=== PATIENT | female | born 2000 | race Caucasian/White ===

== ENCOUNTER 2023-03-24 10:28 | Emergency (ER) | payer OTHER, SELFPAY ==
[2023-03-24 10:36] VITALS: BP 102/78
--- NOTE | 2023-03-24 10:43 | ED.GENMED ---
History of Present Illness
<Melissa Bass PA-C - Last Filed: 03/24/23 14:43>
General
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
Source: patient
Exam Limitations: none
Time Seen by Provider: 03/24/23 10:42
Nursing documentation reviewed up to this point in time: agreed with
Travel History
Have you had any contact with someone who has COVID-19?: No
Do you have any symptoms of coronavirus? Fever > 100 degrees, chills, cough, shortness of breath, sore throat, loss of taste or smell, muscle aches, or headache?: No
History of Present Illness
History of Present Illness:
This is a 22-year-old female with no pertinent past medical history of anxiety, PCOS who is presenting to the emergency department today with acute on chronic abdominal pain, diarrhea, and urinary urgency. She states that she has had abdominal pain
for around 6 months but states that it is becoming worse within the last week. It is located on the left side and is intermittent. When the pain comes on, it lasts around an hour or 2 and eventually subsides towards the end of the day. She states
that she also has associated nausea but no vomiting. She does not have a decreased appetite. She denies fevers or chills, chest pain, shortness of breath, dizziness, lightheadedness. She denies vaginal bleeding. She said that she has had 3
episodes of diarrhea that started 3 days ago. She saw her [facility] at [facility] for her abdominal pain 6 months ago, at which time she got ultrasound and was diagnosed with PCOS. Her last menstrual period was January 30, she states that
she has a history of irregular periods and had to take progesterone at one point to induce a period. She states that she was being treated for a yeast infection last week with 2 doses of Diflucan and states that she still has some residual white
discharge. She currently does not take progesterone. She states that she has not had sexual intercourse recently and states that there is no chance of STI/STD. She states her family doctor ordered blood work recently but she has not gotten it
done.
Past History
<Melissa Bass PA-C - Last Filed: 03/24/23 14:43>
Past History
ED Past Medical History: None
ED Past Surgical History: None
Social History
Tobacco: Non-smoker
Alcohol: Occasional (rare)
Drug: None
Personal: Single
Living: with family
Employment: Student
Family History
Family History: Other (Noncontributory)
Review of Systems
<Melissa Bass PA-C - Last Filed: 03/24/23 14:43>
Review of Systems
All Other Systems: ROS reviewed and negative except as documented in HPI and ROS
Phy Exam
<Melissa Bass PA-C - Last Filed: 03/24/23 14:43>
Physical Exam
Physical Exam:
General: patient is well appearing and in no acute distress
Skin: warm and dry, no rashes or lesions
Cardiac: regular rate
Pulm: normal respiratory effort
Abdomen: abdomen is nondistended nontender, normoactive bowel sounds.
Neuro: alert and oriented x3
Course
<DAPHNE Stover Last Filed: 03/24/23 14:43>
Orders/Labs/Results
Orders:
Orders
03/24/23 10:45
HCG, Urine Qualitative Screen Urgent
Date Specimen was Collected: 03/24/23
Time Specimen was Collected: 10:39
Comment: ADD ON
Urinalysis Reflex To Culture Urgent
Date Specimen was Collected: 03/24/23
Time Specimen was Collected: 10:39
Urine Microscopic Reflex Cult Urgent
Chlamydia/GC by PCR Urgent
LIBIA Source: U
Specimen Description:
Source:: URINE
Date Specimen was Collected: 03/24/23
Time Specimen was Collected: 10:39
Comment: Add on by Melissa Bass
03/24/23 10:49
Add On- LAB Urgent
Tests Added?: urine preg
03/24/23 11:04
Pelvis & Transvaginal US [US Pelvis W Transvag Combined] Urgent
Comment:
Reason For Exam: left sided pelvic pain
03/24/23 11:18
Complete Blood Count/With Diff Urgent
Comprehensive Metabolic Panel Urgent
03/24/23 11:21
Add On- LAB Urgent
Tests Added?: urine GC/chlamydia
Abnormal Lab Results
03/24/23 03/24/23
10:45 11:18
RBC 3.96 L 10^6/uL
(4.20-5.40)
Hct 35.2 L %
(37.0-47.0)
MCH 31.1 H pg
(27.0-31.0)
Leukocyte Esterase Rfl Trace A
(Negative)
Urine RBC 3-6 A /HPF
(0-2)
Urine Bacteria (Reflex) Few A
(Negative)
03/24/23 11:18
03/24/23 11:18
Vital Signs
Initial and Last Documented VS:
Initial Vital Signs
Temp Pulse Resp BP Pulse Ox
98.3 F 75 16 102/78 98
03/24/23 10:36 03/24/23 10:36 03/24/23 10:36 03/24/23 10:36 03/24/23 10:36
Last Documented Vital Signs
Temp Pulse Resp BP Pulse Ox
98.3 F 60 16 96/65 98
03/24/23 10:36 03/24/23 13:51 03/24/23 10:36 03/24/23 13:51 03/24/23 10:36
<Luis Miguel Lainez DO - Last Filed: 03/24/23 12:23>
Orders/Labs/Results
Orders:
Orders
03/24/23 10:45
HCG, Urine Qualitative Screen Urgent
Date Specimen was Collected: 03/24/23
Time Specimen was Collected: 10:39
Comment: ADD ON
Urinalysis Reflex To Culture Urgent
Date Specimen was Collected: 03/24/23
Time Specimen was Collected: 10:39
Urine Microscopic Reflex Cult Urgent
Chlamydia/GC by PCR Urgent
LIBIA Source: U
Specimen Description:
Source:: URINE
Date Specimen was Collected: 03/24/23
Time Specimen was Collected: 10:39
Comment: Add on by Melissa Bass
03/24/23 10:49
Add On- LAB Urgent
Tests Added?: urine preg
03/24/23 11:04
Pelvis & Transvaginal US [US Pelvis W Transvag Combined] Urgent
Comment:
Reason For Exam: left sided pelvic pain
03/24/23 11:18
Complete Blood Count/With Diff Urgent
Comprehensive Metabolic Panel Urgent
03/24/23 11:21
Add On- LAB Urgent
Tests Added?: urine GC/chlamydia
Abnormal Lab Results
03/24/23 03/24/23
10:45 11:18
RBC 3.96 L 10^6/uL
(4.20-5.40)
Hct 35.2 L %
(37.0-47.0)
MCH 31.1 H pg
(27.0-31.0)
Leukocyte Esterase Rfl Trace A
(Negative)
Urine RBC 3-6 A /HPF
(0-2)
Urine Bacteria (Reflex) Few A
(Negative)
03/24/23 11:18
03/24/23 11:18
Vital Signs
Initial and Last Documented VS:
Initial Vital Signs
Temp Pulse Resp BP Pulse Ox
98.3 F 75 16 102/78 98
03/24/23 10:36 03/24/23 10:36 03/24/23 10:36 03/24/23 10:36 03/24/23 10:36
Last Documented Vital Signs
Temp Pulse Resp BP Pulse Ox
98.3 F 60 16 96/65 98
03/24/23 10:36 03/24/23 13:51 03/24/23 10:36 03/24/23 13:51 03/24/23 10:36
<Melissa Bass PA-C - Last Filed: 03/24/23 14:43>
MDM/Problems Addressed
Differential Diagnosis Includes:
urinary tract infection, pyelonephritis, ovarian cyst, ovarian torsion, tubo-ovarian abscess, gastroenteritis, endometriosis, interstitial cystitis
MDM/Problems Addressed:
dysuria
diarrhea
Chronic conditions affecting care:
anxiety
PCOS
<Melissa Bass PA-C - Last Filed: 03/24/23 14:43>
*Pulse Oximetry
Patient hypoxic: no
*Critical Care Note
Total Time (30-74mins, 75-104mins- exclusive of procedures): Not Applicable
Data Reviewed
Review of Other/Old Records Reveals: Records (reviewed ER physician documentation for previous visit for chlamydia)
<Melissa Bass PA-C - Last Filed: 03/24/23 14:43>
Patient Management
Escalation/DeEscalation of care consider admission/obs:
This is a 22-year-old female presenting emergency department today with acute on chronic left sided pelvic pain that has worsened within the past week, as well as diarrhea and urinary urgency. She is well-appearing and her vital signs are stable.
Her urinalysis does not show any evidence of urinary tract infection. Her CBC and CMP are within normal limits. Her pelvic and transvaginal ultrasound does not show any suspicious ovarian or adnexal lesions, no free fluid in the pelvis.
Considering she is afebrile, had no abdominal tenderness on exam, do not feel any additional imaging is warranted at this time. I advised her to follow-up with her family doctor for further workup and appropriate referral. Advised to return to
emergency department should she experience fevers or chills, worsening of her pain, other concerning signs or symptoms.
ED Attending Note
<Melissa Bass PA-C - Last Filed: 03/24/23 14:43>
-
Portions of this chart may have been created with voice recognition software.� Occasional wrong word or��sound alike� substitutions may have occurred due to the inherent limitations of voice recognition software.
<Luis Miguel Lainez DO - Last Filed: 03/24/23 12:23>
ED Attending Note
Patient seen and examined by attending physician: Yes
I performed the substantive portion of visit, reviewed & personally made and approve the management plan that is documented in note by myself or CHAN.: Yes
ED Attending Note:
I agree with Melissa's note.
Patient complaining of lower abdominal pain. Patient is a history of polycystic ovary disease. She does have pain from time to time but this was normal. Recently treated for a yeast infection with Diflucan.
Vital signs
Abdomen: Soft, minimally tender, no rebound rigidity or guarding
Urinalysis not consistent with a UTI. White count normal, chemistry is normal. Patient test is negative. Will obtain an ultrasound to exclude torsion, ruptured ovarian cyst etc.
Discharge Plan
Departure
Patient Disposition: Home (Routine Discharge)
Date of Disposition: 03/24/23
Time of Disposition: 13:44
Patient with high blood pressure during this ER visit?: No
Discharge Problem:
Pelvic pain, Diarrhea
Instructions: Pelvic Pain (DC), Acute Diarrhea
Prescriptions:
No Action
aripiprazole [Abilify] 5 mg Tablet
5 mg PO DAILY
bupropion HCl [Wellbutrin XL] 150 mg Tablet Extended Release 24 Hr
150 mg PO DAILY
lorazepam [Ativan] 0.5 mg tablet
0.5 mg PO BID Qty: 9 0RF
doxycycline hyclate 100 mg capsule
100 mg PO BID Qty: 28 0RF
Referrals:
Tammi Samuels CRNP [Family Provider] -
Stand Alone Forms: Return to Work
Activity Restrictions/Additional Instructions:
Please call your family doctor today for a follow up appointment in the coming days.
Please return to the emergency department should you experience an acute worsening of your symptoms, fevers or chills, intractable vomiting, decreased ability to tolerate oral intake.
You can take acetaminophen and ibuprofen as needed for pain control.
Interventions
Interventions:
*Risk Screen - Suicide Last Done: 03/24/23 10:36
*General Assessment Last Done: 03/24/23 10:36
*Neglect/Abuse Screening Last Done: 03/24/23 10:36
*Nursing Disposition Last Done: 03/24/23 13:51
ED-Female Genitourinary Assessment Last Done: 03/24/23 11:22
Discharge Date and Time
Discharge Date/Time: 03/24/23 13:52
[2023-03-24 10:52] LABS: Urine Albumin Trace (Neg - Trace); Urine Bilirubin Negative (Negative); Urine Character Clear (Clear); Urine Color Yellow; Urine Glucose Negative (Negative); Urine Ketone Negative (Negative); Urine Leukocyte Trace (Negative); Urine Nitrite Negative (Negative); Urine Occult Blood Negative (Negative); Urine Urobilinogen Negative (Neg - 1+)
[2023-03-24 11:05] LABS: Urine Mucus Many; Urine Squamous Cell 21-25 /LPF (Few)
[2023-03-24 11:07] LABS: Urine Bacteria Few (Negative)
[2023-03-24 11:09] LABS: HCG, Urine Qualitative Screen Negative
[2023-03-24 11:10] LABS: Urine White Cell 0-2 /HPF (0-5)
[2023-03-24 11:39] LABS: % Basophils 0.8 % (0-2); % Eosinophils 2.4 % (0-6); % Immature Granulocytes 0.1 % (0-0.5); % Lymphocytes 23.9 % (20.5-51.1); % Monocytes 7.1 % (1.7-9.3); % Neutrophils 65.7 % (42.2-75.2); Absolute Basophils 0.1 10^3/uL (0-0.2); Absolute Eosinophils 0.2 10^3/uL (0-0.7); Absolute Lymphocytes 1.7 10^3/uL (1.2-3.4); Absolute Monocytes 0.5 10^3/uL (0.1-0.6); Absolute Neutrophils 4.6 10^3/uL (1.4-6.5); Hematocrit 35.2 % (37.0-47.0); Hemoglobin 12.3 g/dL (12.0-16.0); Mean Corp Hgb Conc. 34.9 g/dL (33.0-37.0); Mean Corpuscular Hgb 31.1 pg (27.0-31.0); Mean Corpuscular Volume 88.9 fL (81.0-99.0); Mean Platelet Volume 10.1 fL (7.4-10.4); Nucleated Red Blood Cells % 0 %; Platelet Count 284 10^3/uL (130-400); Red Blood Cell Count 3.96 10^6/uL (4.20-5.40); Red Cell Dist. Width 11.9 % (11.5-14.5); White Blood Cell Count 7.1 10^3/uL (4.8-10.8)
[2023-03-24 11:45] LABS: ALT (SGPT) 13 U/L (0-35); AST (SGOT) 18 U/L (14-36); Albumin 4.6 g/dl (3.5-5.0); Alkaline Phosphatase 55 U/L (38-126); Blood Urea Nitrogen 10 mg/dl (7-17); Calcium 9.4 mg/dl (8.4-10.2); Carbon Dioxide 24 mmol/L (22-30); Chloride 107 mmol/L (98-107); Glucose 89 mg/dl (70-99); Potassium 4.3 mmol/L (3.5-5.1); Sodium 138 mmol/L (135-145); Total Bilirubin 0.7 mg/dl (0.2-1.3); Total Protein 7.1 g/dl (6.3-8.2); eGFR > 60.00
[2023-03-24 13:50] VITALS: BP 96/64
[2023-03-24 13:51] VITALS: BP 96/65
== END 2023-03-24 13:52 | disposition home or self-care (01) ==
LOC: EMR 10:28
PROVIDERS: Physician Assistant; EMERGENCY PHYSICIAN Emergency Medicine; FAMILY PHYSICIAN Nurse Practitioner Family
DX: R10.2 Pelvic and perineal pain (principal); R19.7 Diarrhea, unspecified; R39.15 Urgency of urination; F41.9 Anxiety disorder, unspecified; E28.2 Polycystic ovarian syndrome
CPT/HCPCS: 99284; 76830; 76856; 80053; 81003; 81015; 81025; 85025; 87491; 87591